=== PATIENT | female | born 1975 | race Caucasian/White ===

== ENCOUNTER 2017-06-11 01:30 | Emergency (ER) | payer SELFPAY ==
[2017-06-11 01:54] VITALS: BP 120/84; PULSE 95; TEMP 98.1; BMI 23.9
--- NOTE | 2017-06-11 02:11 | PDOC ---
History of Present Illness - General Chief Complaint: Cold Symptoms Stated Complaint: ALLERGY PROBLEM Time Seen by Provider: 06/11/17 01:56 History Source: Patient Exam Limitations: No Limitations - History of Present Illness Initial Comments: 06/11/17 02:34 41-year-old female patient a past medical history of asthma, presents to the emergency department complaining of sneezing. patient also complains of associated chills, and left-sided pressure. patient denies ever, chest pain, nausea, vomiting, diarrhea, or any other complaints at this time. LNMP: 3 weeks ago. Timing/Duration: reports: this evening Severity: reports: moderate Episode Description: See HPI Possible Cause: Yes: no prior episodes Modifying Factors: worse with: activity, albuterol inhaler, albuterol nebulizer , antibiotics, coughing, lying down, oxygen, rest, other Associated Symptoms: reports: facial pain. denies: denies symptoms, chest pain/ soreness, cough, dizziness, earache, fever/chills, headache, lightheadedness, muscle aches, nasal congestion, nasal drainage, shortness of breath, sinus infection, sore throat, wheezing, other Past History - Travel Traveled outside of the country in the last 30 days: No Close contact w/someone who was outside of country & ill: No - Past Medical History Allergies/Adverse Reactions: Allergies Allergy/AdvReac Type Severity Reaction Status Date / Time No Known Allergies Allergy Verified 06/11/17 01:51 Home Medications: Ambulatory Orders Amoxicillin/Potassium Clav [Augmentin 500-125 Tablet] 1 each PO Q12H #14 tablet 06/11/17 Budesonide [Rhinocort Allergy] 2 spray NS BID #1 spray.pump 06/11/17 - Suicide/Smoking/Psychosocial Hx Smoking History: Never smoked Have you smoked in the past 12 months: No Information on smoking cessation initiated: No Hx Alcohol Use: No Drug/Substance Use Hx: No Respiratory Specific PMHX - Complaint Specific PMHX Angina: No Bronchitis: No Pneumonia: No Pulmonary Embolus: No TB (Tuberculosis): No Review of Systems - Review of Systems Able to Perform ROS?: Yes Comments:: 06/11/17 02:09 Is the patient limited Malay proficient: No Constitutional: No: Chills, Fever HEENTM: No: Tinnitus, Throat Pain, Throat Swelling, Mouth Pain, Difficulty Swallowing, Mouth Swelling Respiratory: No: Cough, Shortness of Breath, Stridor, Wheezing, Productive cough Cardiac (ROS): No: Chest Pain, Syncope, Chest Tightness ABD/GI: No: Diarrhea, Nausea, Vomiting All Other Systems: Reviewed and Negative *Physical Exam - Vital Signs Last Vital Signs Temp Pulse Resp BP Pulse Ox 98.1 F 95 H 14 120/84 99 06/11/17 01:52 06/11/17 01:52 06/11/17 01:52 06/11/17 01:52 06/11/17 01:52 - Physical Exam General Appearance: Yes: Nourished, Appropriately Dressed, Mild Distress. No: Apparent Distress, Moderate Distress, Severe Distress HEENT: positive: EOMI, BENY, Normal ENT Inspection, Normal Voice, Symmetrical, TMs Normal, Pharynx Normal, Sinus Tenderness. negative: Pharyngeal Erythema, Tonsillar Exudate, Tonsillar Erythema, Nasal Congestion, Rhinorrhea, Orbits, TM Bulging, TM Dull, TM Erythema Neck: positive: Trachea midline, Normal Thyroid, Supple. negative: Stridor, Lymphadenopathy (R), Lymphadenopathy (L), Rigidity Respiratory/Chest: positive: Lungs Clear, Normal Breath Sounds. negative: Chest Tender, Respiratory Distress, Accessory Muscle Use, Labored Respiration, Rapid RR Cardiovascular: positive: Regular Rhythm, Regular Rate Musculoskeletal: positive: Normal Inspection. negative: CVA Tenderness Extremity: positive: Normal Capillary Refill, Normal Inspection, Normal Range of Motion. negative: Pedal Edema, Swelling, Calf Tenderness, Erythema, Inflammation Integumentary: positive: Normal Color, Dry, Warm Neurologic: positive: rent and housing investigator II-XII NML intact, Fully Oriented, Alert, Normal Mood/ Affect, Normal Response, Motor Strength 5/5 *DC/Admit/Observation/Transfer Diagnosis at time of Disposition: Sinus infection Qualifiers: Sinusitis location: ethmoidal Chronicity: subacute Qualified Code(s): J01.20 - Acute ethmoidal sinusitis, unspecified - Discharge Dispostion Disposition: HOME Condition at time of disposition: Stable Admit: No - Prescriptions Prescriptions: Amoxicillin/Potassium Clav [Augmentin 500-125 Tablet] 1 each PO Q12H #14 tablet Budesonide [Rhinocort Allergy] 2 spray NS BID #1 spray.pump - Patient Instructions Printed Discharge Instructions: DI for Sinusitis Additional Instructions: Take medications as prescribed. Follow up with your doctor for further evaluation. Return if symptoms worsen or any concerns for further evaluation. Print Language: LUXEMBOURGISH
[2017-06-11] MEDS ORDERED: AMOX TR/POT CLAV 500MG/125MG TABLETS (FP) PO ONE (02:25)
--- NOTE | 2017-06-11 02:52 | PDOC ---
*Physical Exam - Vital Signs Last Vital Signs Temp Pulse Resp BP Pulse Ox 98.1 F 95 H 14 120/84 99 06/11/17 01:52 06/11/17 01:52 06/11/17 01:52 06/11/17 01:52 06/11/17 01:52 Medical Decision Making - Medical Decision Making 06/11/17 02:52 agree with care from DIE MECHANIC Nabil *DC/Admit/Observation/Transfer Diagnosis at time of Disposition: Sinus infection Qualifiers: Sinusitis location: ethmoidal Chronicity: subacute Qualified Code(s): J01.20 - Acute ethmoidal sinusitis, unspecified - Prescriptions Prescriptions: Amoxicillin/Potassium Clav [Augmentin 500-125 Tablet] 1 each PO Q12H #14 tablet Budesonide [Rhinocort Allergy] 2 spray NS BID #1 spray.pump - Referrals - Patient Instructions Printed Discharge Instructions: DI for Sinusitis Additional Instructions: Take medications as prescribed. Follow up with your doctor for further evaluation. Return if symptoms worsen or any concerns for further evaluation. Print Language: INDONESIAN - Post Discharge Activity
[2017-06-11] MEDS ORDERED: AMOX TR/POT CLAV 500MG/125MG TABLETS (FP) ONE (02:58)
== END 2017-06-11 03:02 | disposition home or self-care (01) ==
LOC: JER 01:30
DX: J01.20 Acute ethmoidal sinusitis, unspecified (principal); J45.909 Unspecified asthma, uncomplicated
CPT/HCPCS: 99281-25

== ENCOUNTER 2017-12-28 14:08 | Emergency (ER) | payer SELFPAY ==
[2017-12-28 14:14] VITALS: BP 110/83; PULSE 88; TEMP 98.2; BMI 24.0
[2017-12-28] MEDS ORDERED: DIPHTH,PERTUSS(ACELL),TET 0.5 ML DISP.SYRIN IM ONE (14:18)
--- NOTE | 2017-12-28 14:18 | PDOC ---
Rapid Medical Evaluation Chief Complaint: Pain Medical Evaluation: Allergies Allergy/AdvReac Type Severity Reaction Status Date / Time No Known Allergies Allergy Verified 12/28/17 14:10 Vital Signs Temp Pulse Resp BP Pulse Ox 98.2 F 88 18 110/83 100 12/28/17 14:11 12/28/17 14:11 12/28/17 14:11 12/28/17 14:11 12/28/17 14:11 12/28/17 14:14 I have performed a brief in-person evaluation of this patient. The patient presents with a chief complaint of: finger pain/swelling Pertinent physical exam findings:paronychia to R index I have ordered the following:tetanus The patient will proceed to the ED for further evaluation. Discharge Disposition - Diagnosis Paronychia - Referrals - Patient Instructions - Post Discharge Activity
--- NOTE | 2017-12-28 14:45 | PDOC ---
History of Present Illness - General Chief Complaint: Pain Stated Complaint: SWOLLEN RT FINGER Time Seen by Provider: 12/28/17 14:12 History Source: Patient Exam Limitations: No Limitations - History of Present Illness Initial Comments: CHIEF COMPLAINT: 42 y/o afebrile female with no significant PMH c/o right index finger swelling since yesterday. HISTORY OF PRESENT ILLNESS: Patient states she had a manicure about 1 week ago but doesn't remember them cutting her finger. She denies fever, streaking. Vital signs on arrival are within normal limits. REVIEW OF SYSTEMS: GENERAL/CONSTITUTIONAL: No fever/chills. No weakness. No weight change. MUSCULOSKELETAL: Swelling and pain to tip of right index finger. SKIN: No rash or easy bruising. NEUROLOGIC: No headache, vertigo, loss of consciousness, or loss of sensation. PHYSICAL EXAM: VITAL_SIGNS: within normal limits GENERAL_APPEARANCE: alert, cooperative, no obvious discomfort. MENTAL_STATUS: speech clear, oriented X 3, responds appropriately to questions. NEURO: motor intact and sensory intact in injured extremity. EXTREMITIES: distal dorsal right index finger is erythematous, edematous and very TTP along nail border. No streaking. SKIN: warm, dry, good color. Past History - Past Medical History Allergies/Adverse Reactions: Allergies Allergy/AdvReac Type Severity Reaction Status Date / Time No Known Allergies Allergy Verified 12/28/17 14:10 Home Medications: Ambulatory Orders Bacitracin - [Bacitracin Topical Ointment -] 1 applic TP BID #1 tube 12/28/17 Asthma: Yes COPD: No - Suicide/Smoking/Psychosocial Hx Smoking History: Never smoked Have you smoked in the past 12 months: No Information on smoking cessation initiated: No Hx Alcohol Use: No Drug/Substance Use Hx: No Substance Use Type: None *Physical Exam - Vital Signs Last Vital Signs Temp Pulse Resp BP Pulse Ox 98.2 F 88 18 110/83 100 12/28/17 14:11 12/28/17 14:11 12/28/17 14:11 12/28/17 14:11 12/28/17 14:11 Procedures - Incision and Drainage I&D Site: Right: Paronychia Betadine cleansed: Yes Anesthesia: 1% Lidocaine (digital block) Volume(ml): 5 Blade Size: 11 Attempts: 1 Plain Packing: No Dressing: Yes Medical Decision Making - Medical Decision Making A/P: 42 y/o female with paronychia to right index finger. Performed I&D. Instructed her to keep area clean and dry. Instructed her to return to the ER with any worsening or concerning symptoms. The patient verbalizes understanding of all instructions, has no further questions and is awaiting discharge. *DC/Admit/Observation/Transfer Diagnosis at time of Disposition: Paronychia - Discharge Dispostion Disposition: HOME Condition at time of disposition: Improved - Prescriptions Prescriptions: Bacitracin - [Bacitracin Topical Ointment -] 1 applic TP BID #1 tube - Referrals - Patient Instructions Printed Discharge Instructions: DI for Paronychia Additional Instructions: Discharge Instructions: -Keep wound clean and dry -Apply bacitracin to wound twice a day for 3 days -Return to the ER with any worsening or concerning symptoms - Post Discharge Activity
== END 2017-12-28 15:08 | disposition home or self-care (01) ==
LOC: JERFT 14:08
PROC: 0J9J0ZZ Drainage of Right Hand Subcutaneous Tissue and Fascia, Open Approach (ICD-10-PCS; principal; 2017-12-28)
PROC: 3E0234Z Introduction of Serum, Toxoid and Vaccine into Muscle, Percutaneous Approach (ICD-10-PCS; 2017-12-28)
DX: L03.011 Cellulitis of right finger (principal)
CPT/HCPCS: 87070; 87186; 87205; 90715; 99281-25

== ENCOUNTER → 2019-01-05 | Day surgery (SDC) | payer OTHER ==
--- NOTE | 2019-01-05 12:18 | OP ---
DATE OF OPERATION: 01/05/2019 PREOPERATIVE DIAGNOSIS: Abnormal right mammography. POSTOPERATIVE DIAGNOSIS: Abnormal right mammography. PROCEDURE: Right stereotactic needle biopsy with clips. SURGEON: Anabell Adamson MD ANESTHESIA: Local. COMPLICATIONS: None. This was a sterile procedure. INDICATIONS: The patient presented for routine screening mammography that noted a cluster of microcalcifications in the upper outer right breast. My recommendation was needle biopsy. The procedure was discussed with all her questions answered. PROCEDURE IN DETAIL: Patient brought to [facility] [place]. Laid prone on the Lorad table. Using the cranial approach the calcifications in the upper outer right breast were identified. A sterile prep was obtained. A target was chosen. There was a positive stroke margin. Using Betadine and 1% lidocaine a 9-gauge Suros device was used to take several cores from this area. Cores showed calcifications within them. These were handled using the usual calcification protocol. A clip was deployed in the area. Hemostasis assured with direct pressure. Steri-Strips were used to close the incision. She tolerated the procedure well and left the breast imaging center in good condition. ANABELL ADAMSON M.D. [id number]
--- NOTE | 2019-01-06 16:13 | PATH ---
Surgical Pathology Report Patient Name: PRETTY ZHONG [facility]. Rec. #: [id number] /Age/Gender: 1975 (Age: 43) / F Account: [id number] Location: [facility] Taken: 01/05/2019 Received: 01/05/2019 Reported: 01/06/2019 Physicians: Anabell Ricci M.D. Specimen(s) Received A: RIGHT BREAST SPECIMEN-WITH CALCIFICATIONS B: RIGHT BREAST SPECIMEN-WITHOUT CALCIFICATIONS Clinical History Nonpalpable lesion Mammographic findings: Microcalcification, suspicious Final Diagnosis A. BREAST, RIGHT, WITH CALCIFICATIONS, STEREOTACTIC BIOPSY: BENIGN BREAST TISSUE SHOWING FIBROCYSTIC CHANGE INCLUDING CYSTIC APOCRINE METAPLASIA. FEW CALCIFICATIONS ARE PRESENT IN ASSOCIATION WITH CYST CONTENTS. B. BREAST, RIGHT, WITHOUT CALCIFICATIONS, STEREOTACTIC BIOPSY: BENIGN BREAST TISSUE SHOWING FOCAL USUAL DUCTAL HYPERPLASIA (UDH) WITH FEW ASSOCIATED CALCIFICATIONS. Electronically Signed Elsa Luna M.D. Gross Description A. Received in formalin labeled "right breast with calcifications," are 3 cabrales-yellow, cylindrical portions of fibroadipose tissue ranging from 3.0-3.5 cm in length and averaging 0.3 cm in diameter. The specimens are submitted in toto in one cassette. B. Received in formalin labeled "right breast without calcifications," is a 2.3 x 2.0 x 0.3 cm aggregate of multiple cabrales-yellow, irregular to cylindrical portions of fibroadipose tissue. The formalin is filtered and the specimen is entirely submitted in one cassette. Time to formalin fixation: 5 minutes Total formalin fixation time: Approximately 7 hours. 01/05/2019 [facility]01/05/2019
== END | disposition home or self-care (01) ==
LOC: FMAMMOTONE 08:28
PROVIDERS: ATTEND Surgery
PROC: 0HBT3ZX Excision of Right Breast, Percutaneous Approach, Diagnostic (ICD-10-PCS; principal; 2019-01-05)
DX: N60.11 Diffuse cystic mastopathy of right breast (principal); N64.89 Other specified disorders of breast; R92.8 Other abnormal and inconclusive findings on diagnostic imaging of breast
CPT/HCPCS: 19081; 87899; 88305-TC; A4648

== ENCOUNTER 2019-10-09 23:24 | Emergency (ER) | payer SELFPAY ==
[2019-10-09 23:50] VITALS: TEMP 97.9; BMI 29.2
--- NOTE | 2019-10-10 01:18 | PDOC ---
Documentation entered by Marcie Turk SCRIBE, acting as scribe for Amelia Cohen MD. Amelia Cohen MD: This documentation has been prepared by the scribe, Marcie Turk SCRIBE, under my direction and personally reviewed by me in its entirety. I confirm that the documentation accurately reflects all work, treatment, procedures, and medical decision making performed by me. History of Present Illness - General Chief Complaint: Vaginal Bleeding Stated Complaint: SICK Time Seen by Provider: 10/10/19 00:51 History Source: Patient Exam Limitations: No Limitations - History of Present Illness Initial Comments: 10/10/19 01:26 The patient is a 44-year-old female with no significant past medical history who presents to the emergency department with abdominal cramping and vaginal bleeding. The patient reports shes been having 4-5 months of abdominal cramping , with an onset of vaginal bleeding on September 18. The patient reports following up with PCP for the symptoms last week, where she had lab work done to check for anemia, which was unremarkable and was scheduled for an ultrasound. The patient reports she had the ultrasounds on Thursday, 10/05, awaiting results. The patient states she is concerned for a foreign body in the vagina because while showering, she manually felt something inside the vagina, though it might have been a tampon or something. Allergies: NKA, seafood. PCP: Dr. 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 Past History - Past Medical History Allergies/Adverse Reactions: Allergies Allergy/AdvReac Type Severity Reaction Status Date / Time fish derived Allergy Verified 10/09/19 23:51 seafood Allergy Uncoded 10/09/19 23:51 Home Medications: Ambulatory Orders Bacitracin - [Bacitracin Topical Ointment -] 1 applic TP BID #1 tube 12/28/17 Asthma: Yes COPD: No - Psycho Social/Smoking Cessation Hx Smoking History: Never smoked Have you smoked in the past 12 months: No Hx Alcohol Use: No Drug/Substance Use Hx: No Substance Use Type: None Review of Systems - Review of Systems Able to Perform ROS?: Yes Comments:: 10/10/19 01:27 CONSTITUTIONAL: Absent: fever, chills, diaphoresis, generalized weakness, malaise, loss of appetite HEENT: Absent: rhinorrhea, nasal congestion, throat pain, throat swelling, difficulty swallowing, mouth swelling, ear pain, eye pain, visual Changes CARDIOVASCULAR: Absent: chest pain, syncope, palpitations, irregular heart rate, lightheadedness , peripheral edema RESPIRATORY: Absent: cough, shortness of breath, dyspnea with exertion, orthopnea, wheezing, stridor, hemoptysis GASTROINTESTINAL:+abdominal cramping. Absent: abdominal distension, nausea, vomiting, diarrhea, constipation, melena, hematochezia GENITOURINARY: +vaginal bleeding. Absent: dysuria, frequency, urgency, hesitancy, hematuria, flank pain, genital pain MUSCULOSKELETAL: Absent: myalgia, arthralgia, joint swelling SKIN: Absent: rash, itching, pallor NEUROLOGIC: Absent: headache, focal weakness or paresthesias, dizziness, unsteady gait, seizure, mental status changes, bladder or bowel incontinence *Physical Exam - Vital Signs Last Vital Signs Temp Pulse Resp BP Pulse Ox 97.9 F 80 20 125/78 100 10/09/19 23:45 10/09/19 23:45 10/09/19 23:45 10/09/19 23:45 10/09/19 23:45 - Physical Exam 10/10/19 01:28 GENERAL: 44 year old female, Well-appearing, well-nourished. No apparent distress. HEENT: Normocephalic, atraumatic. PERRL, EOM intact. CARDIOVASCULAR: Normal S1, S2. Regular rate and rhythm. PULMONARY: Clear to auscultation bilaterally. ABDOMEN: Soft, non-distended, non-tender. : discomfort in the vaginal vault manual inspection, some blood noted. Pelvic exam showed a hard, circular 4cm mass that the patient is currently being worked up for by PCP. EXTREMITIES: Normal ROM in all four extremities. No gross deformities. SKIN: Warm, dry. No rash NEUROLOGICAL: No focal neurological deficits. ED Treatment Course - LABORATORY CBC & Chemistry Diagram: 10/10/19 01:55 10/10/19 01:55 Medical Decision Making - Medical Decision Making 10/10/19 01:32 44-year-old female has had abnormal vaginal bleeding since September 18 presents because of a foreign body sensation in her pelvic area She did see her primary care physician at [facility] and had a transvaginal ultrasound last Thursday She does have an appointment with her primary care provider but is not for several weeks On exam she does have a cervical mass and this will be further investigated with a CAT scan of the abdomen pelvis since she already had an ultrasound on Thursday, labs are pending 10/10/19 01:34 Discharge - Discharge Information Problems reviewed: Yes Clinical Impression/Diagnosis: Cervical mass, Cervix abnormality Condition: Stable Disposition: HOME - Admission No - Follow up/Referral Referrals: Ben Quinones MD [Staff Physician] - Prudencio Tejada MD [Staff Physician] - Jacklyn Guerrero MD [Primary Care Provider] - - Patient Discharge Instructions Patient Printed Discharge Instructions: Cervical Cancer, DI for Abnormal Uterine Bleeding, DI for Pelvic Pain Additional Instructions: Your pelvic exam reveals a mass that needs to be further evaluated You have been given referral for gynecology - Post Discharge Activity
[2019-10-10] MEDS ORDERED: ACETAMINOPHEN 500 MG TABLET (FP) PO STA (01:28)
[2019-10-10] MEDS ORDERED: SODIUM CHLORIDE 1,000 ML IV STA (01:35)
--- NOTE | 2019-10-10 01:57 | PDOC ---
*Physical Exam - Vital Signs Last Vital Signs Temp Pulse Resp BP Pulse Ox 97.9 F 80 20 125/78 100 10/09/19 23:45 10/09/19 23:45 10/09/19 23:45 10/09/19 23:45 10/09/19 23:45 ED Treatment Course - LABORATORY CBC & Chemistry Diagram: 10/10/19 01:55 10/10/19 01:55 Medical Decision Making - Medical Decision Making 10/10/19 01:57 Pt comes with vaginal mass Signed out to me. 10/10/19 06:45 Patient Name: PRETTY ZHONG THIS IS A PRELIMINARY REPORT FROM [facility] DATE OF SERVICE: 2019-10-10 05:25:18 IMAGES: [id number] EXAM: ABDOMEN \T\ PELVIS CT WITH CONTR HISTORY: Cervical mass. Rule out cancer. Rule out metastases. COMPARISON: None. FINDINGS: Lung bases are clear. The visualized cardiac chambers are normal size and configuration. Normal liver, gallbladder, pancreas, spleen, adrenal glands and kidneys. The stomach and abdominal small and large bowel are normal. There is no aortic aneurysm. There is no significant retroperitoneal lymphadenopathy. The pelvic small and large bowel are normal. The appendix is normal. 3.7 x 2.7 cm mass is noted protruding into the cervix. This could represent a fibroid as several additional clearly uterine fibroids are noted. No endometrial thickening. A 1.6 cm involuting left ovarian cyst is noted. Urinary bladder is unremarkable. There is minimal pelvic free fluid. No discrete pelvic lymphadenopathy is identified. IMPRESSION: Cervical mass, potentially neoplasm, although a fibroid is considered. No evidence of metastases. 1.6 involuting left ovarian cyst and minimal pelvic free fluid Discharge - Discharge Information Problems reviewed: Yes Clinical Impression/Diagnosis: Cervical mass, Cervix abnormality Condition: Stable Disposition: HOME - Follow up/Referral Referrals: Prudencio Tejada MD [Staff Physician] - Jaclkyn Guerrero MD [Primary Care Provider] - Ben Quinones MD [Staff Physician] - - Patient Discharge Instructions Patient Printed Discharge Instructions: DI for Abnormal Uterine Bleeding, DI for Pelvic Pain, Cervical Cancer Additional Instructions: Your pelvic exam reveals a mass that needs to be further evaluated You have been given referral for gynecology - Post Discharge Activity
[2019-10-10] MEDS ORDERED: ACETAMINOPHEN 325 MG TABLET (FP) ONE (01:58)
[2019-10-10 02:27] LABS: BASO % 0.9 % (0-2.0); EOS % 7.3 % (0-4.5); HEMATOCRIT 31.3 % (32.4-45.2); LYMPH % 37.5 % (8-40); MCH 25.5 pg (25.7-33.7); MCHC 31.9 g/dl (32.0-36.0); MEAN CELL VOLUME 80.1 fl (80-96); MEAN PLT VOLUME 7.8 fl (7.5-11.1); MONO % 9.2 % (3.8-10.2); NEUT % 45.1 % (42.8-82.8); PLATELET COUNT 412 K/MM3 (134-434); RDW 14.8 % (11.6-15.6); WHITE BLOOD COUNT 7.6 K/mm3 (4.0-10.0)
[2019-10-10 03:03] LABS: ALBUMIN 3.8 g/dl (3.4-5.0); BILIRUBIN,TOTAL 0.2 mg/dL (0.2-1); BLOOD UREA NITROGEN 9.1 mg/dL (7-18); CALCIUM 8.8 mg/dL (8.5-10.1); CREATININE 0.8 mg/dL (0.55-1.3); POTASSIUM 4.3 mmol/L (3.5-5.1); TOT PROT 7.7 g/dl (6.4-8.2)
[2019-10-10 06:56] VITALS: BP 122/83; PULSE 76
== END 2019-10-10 06:54 | disposition home or self-care (01) ==
LOC: JER 23:24
PROC: 3E0337Z Introduction of Electrolytic and Water Balance Substance into Peripheral Vein, Percutaneous Approach (ICD-10-PCS; principal; 2019-10-09)
DX: N88.8 Other specified noninflammatory disorders of cervix uteri (principal)
CPT/HCPCS: 36415; 74177-TC; 80053; 84703; 85025; 99283-25; J7030